=== PATIENT | male | born 1950 | race Caucasian/White ===

== ENCOUNTER → 2019-10-02 10:15 | Outpatient (CLI) | payer MEDICARE, OTHER, SELFPAY ==
[2019-10-03 15:17] LABS: COVID19 Sendout NOT DETECTED (Not Detect)
== END ==
PROVIDERS: Visit Provider Registered Nurse
DX: Z01.812 Encounter for preprocedural laboratory examination (principal)
CPT/HCPCS: 87635

== ENCOUNTER → 2019-10-05 10:16 | Outpatient (CLI) | payer MEDICARE, OTHER, SELFPAY ==
--- NOTE | 2019-10-12 16:04 | PM.PFT.1 ---
Pulmonary Function Test Referral & Results Date Patient Seen: 10/05/19 Requesting provider: Lula Gomes Results: The spirometry demonstrates an FVC of 3.18 L which is 72% of predicted. The FEV1 was measured at 1.51 L which is 47% of predicted. The FEV1/FVC ratio was 48 which is 64% of predicted. Following the administration of bronchodilator there was a 17% improvement in FEV1 and a 50% improvement in FEF 25-75%. Lung volumes show an SVC of 3.35 L which is 73% of predicted. The diffusing capacity was measured at 8.92 which is 27% of predicted. No hemoglobin value was provided, so no correction for potential anemia could be made, if appropriate. The maximum voluntary ventilation was reduced Interpretation: This study demonstrates moderate obstructive lung disease based on reduction FEV1 and FEV1/FVC ratio. There is some minimal evidence of benefit following bronchodilator based on improvement in FEV1 and FEF 25-75% as above. There is also mild restrictive lung disease present based on reduction SVC There is a severe reduction in diffusing capacity suggesting significant disease at the capillary alveolar level, to the point where patient may likely be hypoxic at times on room air Clinical correlation suggested
== END ==
PROVIDERS: Referring Provider Internal Medicine; Visit Provider Internal Medicine
DX: J44.9 Chronic obstructive pulmonary disease, unspecified (principal); Z87.891 Personal history of nicotine dependence
CPT/HCPCS: 94060; 94726; 94729